=== PATIENT | female | born 1975 | race Caucasian/White ===

== ENCOUNTER 2020-12-22 22:08 | Emergency (ER) | payer SELFPAY ==
[2020-12-22 22:15] VITALS: BP 133/72; PULSE 80; RESP 16; TEMP 36.6; O2SAT 97; BMI 24.9
--- NOTE | 2020-12-22 22:42 | DI.CT.S_ITS ---
PROCEDURE: CT HEAD/BRAIN WO CON INDICATIONS: persistant headache TECHNIQUE: Noncontrast 4.5 mm thick angled axial sections acquired from the foramen magnum to the vertex, with coronal and sagittal reformats. For radiation dose reduction, the following was used: automated exposure control, adjustment of mA and/or kV according to patient size. COMPARISON: None. FINDINGS: Image quality: Excellent. CSF spaces: Basal cisterns are patent. No extra-axial fluid collections. Ventricles are normal in size and shape. Brain: No midline shift. No intracranial masses or hemorrhage. Melgar-white matter interface is normal. Skull and face: Calvarium and visualized facial bones are intact, without suspicious lesions. Sinuses: Visualized sinuses and mastoids are clear. IMPRESSION: 1. No acute intracranial abnormalities. No significant discrepancy with the shift supervisor melting radiology preliminary report. Dictated by: Ayden Brewster M.D. on 12/23/2020 at 7:26 Approved by: Ayden Brewster M.D. on 12/23/2020 at 7:26
--- NOTE | 2020-12-22 22:52 | ED.HA ---
HPI - Headache General Chief Complaint: Headache Stated Complaint: migraine Time Seen by Provider: 12/22/20 22:42 Source: patient Mode of arrival: Ambulatory Limitations: no limitations History of Present Illness HPI Narrative: Patient is a 45-year-old female history of migraines presenting with migraine is surge about 3 4 days ago. She says her migraines typically last about 5 days. She has taken sumatriptan without any relief. She is feels like her headache is getting worse it is now on the left side of her head. She has been vomiting she feels dehydrated. She denies any dizziness or lightheadedness. She denies any fever or neck pain. Is sensitive to light and noise typical to her previous headaches. She believes that she took sumatriptan today without any relief she has not taken any Tylenol or ibuprofen. She is traveling and she lives in [place] off a. She says that some migraine headaches for 17 years she has never had any imaging of her head. He is requesting CT. Complaint: migraine Onset (ago): day(s) Location: left Related Data Home Medications Medication Instructions Recorded Confirmed sumatriptan succinate 25 mg tablet 25 mg PO .prn tab 10/29/20 10/29/20 Allergies Allergy/AdvReac Type Severity Reaction Status Date / Time No Known Drug Allergies Allergy Verified 10/29/20 09:21 Review of Systems Review of Systems ROS Unobtainable: All systems reviewed & are unremarkable except as noted in HPI and below Constitutional Constitutional: Denies chills, Denies fever(s), Reports headache(s), Denies lethargy and Denies weakness Eyes Eyes: Reports photophobia ENT Ears, Nose, Mouth, and Throat: Denies vertigo, Denies dizziness and Reports headache(s) Cardiovascular Cardiovascular: Denies chest pain and Denies dyspnea on exertion Respiratory Respiratory: Denies cough and Denies dyspnea on exertion Gastrointestinal Gastrointestinal: Denies abdominal pain, Reports nausea and Reports vomiting Musculoskeletal Musculoskeletal: Denies back pain and Denies numbness Integumentary/Breasts Skin/Breast: Denies pruritus, Denies erythema, Denies rash and Denies wounds Neurologic Neurologic: Denies vertigo, Denies dizziness, Reports headache(s), Denies numbness and Denies weakness Exam Initial Vital Signs Initial Vital Signs: Vital Signs Temperature 97.8 F 06/16/21 22:15 Pulse Rate 80 12/22/20 22:15 Respiratory Rate 16 12/22/20 22:15 Blood Pressure 133/72 12/22/20 22:15 Pulse Oximetry 97 12/22/20 22:15 GENERAL: 45-year-old female in dark room with towel over her eyes appears in pain HEENT: Head atraumatic,EOMI, pupils reactive, face symmetric, moist] mucous membranes CARDIOVASCULAR: Regular rate and rhythm without murmurs, rubs or gallops. RESPIRATORY: Breath sounds equal bilaterally, no wheezes rales or rhonchi. ABDOMEN: Soft, nontender. Normoactive bowel sounds all 4 quadrants. No guarding or rebound. EXTREMITIES: Normal range of motion, no clubbing or edema. Neurovascularly intact NEUROLOGICAL: Alert and oriented x4.Normal gait and speech. Cranial nerves II through XII grossly intact. Senior Commissions Analyst strength equal bilaterally lower extremity strength equal as well sensation is to soft touch is intact bilaterally SKIN: Warm, dry, no laceration, no petechiae, no rashes or lesions. Scores NIH Stroke Scale Level of Conciousness: Alert, keenly responsive Ask month/age: Answers both questions correctly. Open/close eyes, close hand: Performs both tasks correctly Best gaze horizontal: Normal Visual meadows: No visual loss Facial palsy: Normal symetrical movement Left arm drift: No drift for full 10 sec Right arm drift: No drift for full 10 sec Left leg drift: No drift for full 5 sec Right leg drift: No drift for full 5 sec Limb ataxia: Absent Sensory on face/arms/legs: Normal, no sensory loss Best language: No aphasia, normal Dysarthria: Normal Extinction or inattention: No abnormality Total NIH Stroke scale score: 0 Course Orders Ordered: ED Orders 12/22/20 22:42 CT head/brain wo con Stat Discontinued Medications Diphenhydramine HCl (Diphenhydramine 50 Mg/Ml Vial) 25 mg IV NOW ONE Stop: 12/22/20 22:43 Last Admin: 12/22/20 22:57 Dose: 25 mg Documented by: ARRON Sodium Chloride (Normal Saline 0.9%) 1,000 mls @ 1,000 mls/hr IV BOLUS ONE Stop: 12/22/20 23:41 Last Infusion: 12/23/20 00:16 Dose: 0 mls/hr Documented by: Admin: 12/22/20 23:00 Dose: 1,000 mls/hr Documented by: ARRON Ketorolac Tromethamine (Ketorolac 30 Mg/Ml Vial) 15 mg IV NOW ONE Stop: 12/22/20 22:43 Last Admin: 12/22/20 22:54 Dose: 15 mg Documented by: ARRON Lorazepam (Lorazepam 2 Mg/Ml Inj) 0.5 mg IV NOW ONE Stop: 12/22/20 23:22 Last Admin: 12/22/20 23:24 Dose: 0.5 mg Documented by: ARRON Prochlorperazine (Prochlorperazine 10 Mg/2 Ml Vial) 10 mg IV NOW ONE Stop: 12/22/20 22:43 Last Admin: 12/22/20 22:55 Dose: 10 mg Documented by: ARRON Vital Signs Vital signs: Vital Signs - 8 hr 12/22/20 22:15 12/23/20 00:58 Temperature 97.8 F Pulse Rate 80 86 Respiratory Rate 16 20 Blood Pressure 133/72 99/68 Pulse Oximetry 97 96 MDM - Headache Imaging Data CT scan - head: Radiologist's Impression: Preliminary report negative head CT MDM Narrative Medical decision making narrative: Patient has history of migraines presents like his previous migraines. However [place] where [place] is no CT scanner and he has never had any imaging of her brain. Her headache is also uncontrolled with sumatriptan and she has been vomiting. He is feeling anxious after the migraine cocktail likely secondary to Compazine and is given 0.5 mg of Ativan and fell sleep. she is re-evaluated in headache has improved. She has no signs of meningitis, this is not the worse headache of her life and low suspicion for subarachnoid hemorrhage. At this time patient is feeling right and able to go home Discharge Plan Departure Patient Disposition: Home Clinical Impression: Migraine Qualifiers: Migraine type: unspecified Status migrainosus presence: without status migrainosus Intractability: not intractable Qualified Code(s): G43.909 - Migraine, unspecified, not intractable, without status migrainosus Instructions: DI for Migraine Activity Restrictions/Additional Instructions: *You have been diagnosed with migraine headache *What to do: At this time her CT scan of your head is negative. Help that you continue to go home and feel better and rest. *Continue to take medications as directed *Follow up with your primary care provider in 2-3 days *Return to ER if you should have worsening headache persistent vomiting weakness numbness or tingling or any new, worsening or concerning symptoms Prescriptions: No Action sumatriptan succinate 25 mg tablet 25 mg PO .prn RF: 0 Referrals: Delmis Daniel PA-C [Primary Care Provider] -
[2020-12-22] MEDS: KETOROLAC 30 MG/ML VIAL 15 MG IV (22:54)
[2020-12-22] MEDS: PROCHLORPERAZINE 10 MG/2 ML VIAL IV (22:55)
[2020-12-22] MEDS: diphenhydrAMINE 50 MG/ML VIAL 25 MG IV (22:57)
[2020-12-22] MEDS: SODIUM CHLORIDE 0.9% 1,000 ML 1000 ML IV (23:00)
[2020-12-22] MEDS: LORazepam 2 MG/ML INJ 0.5 MG IV (23:24)
[2020-12-23 00:58] VITALS: BP 99/68; PULSE 86; RESP 20; O2SAT 96
== END 2020-12-23 00:59 | disposition home or self-care (01) ==
PROVIDERS: Emergency Provider Emergency Medicine; PCP Physician Assistant Medical
DX: G43.909 Migraine, unspecified, not intractable, without status migrainosus (principal)
CPT/HCPCS: 70450; 96361; 96374; 96375; 99284; J0780; J1200; J1885; J2060

== ENCOUNTER 2022-06-28 11:07 | Emergency (ER) | payer OTHER, SELFPAY ==
[2022-06-28 11:20] VITALS: BP 120/88; PULSE 78; RESP 15; TEMP 36.7; O2SAT 99; BMI 27.3
[2022-06-28 12:56] LABS: Add Manual Diff / Slide Review NO; Basophils Absolute Auto 100 /uL (0-100); Eosinophils Absolute Auto 100 /uL (0-450); Eosinophils Percent Auto 0.8 % (2-4); Hematocrit 40.2 % (36-46); Hemoglobin 13.3 g/dL (12.0-16.0); Lymphocytes Absolute Auto 2100 /uL (1100-4500); Lymphocytes Percent Auto 27.5 % (25-40); Mean Corpuscular HGB Conc 33.1 % (30-36); Mean Corpuscular Hemoglobin 29.2 PG (26-34); Mean Corpuscular Volume 88.1 fL (80-100); Monocytes Absolute Auto 400 /uL (0-900); Monocytes Percent Auto 5.4 % (3-14); Neutrophils Absolute Auto 4900 /uL (1500-7000); Neutrophils Percent Auto 65.3 % (50-75); Platelet Count 283 X10^3/uL (150-400); Red Blood Cell Count 4.56 X10^6/uL (4.0-5.2); Red Cell Distribution Width 13.2 % (11.6-14.8); White Blood Cell Count 7.5 X10^3/uL (4.5-11.0)
[2022-06-28 13:10] LABS: INR 1.1 (0.9-1.3)
[2022-06-28 13:12] LABS: PTT Partial Thromboplastin Tim 36 SECONDS (26-36)
[2022-06-28 13:14] LABS: Alanine Aminotransferase 38 IU/L (<35); Albumin 4.8 g/dL (3.5-5.0); Albumin Globulin Ratio 1.3 (1.0-2.8); Alkaline Phosphatase 92 U/L (38-126); Aspartate Aminotransferase 36 IU/L (14-36); BUN Creatinine Ratio 19.5 (6-22); Bilirubin Total 0.6 mg/dL (0.2-1.3); Blood Urea Nitrogen 16 mg/dL (7-17); Calcium 9.5 mg/dL (8.4-10.2); Carbon Dioxide 26 mmol/L (22-32); Chloride 103 mmol/L (98-107); Estimated Glomerular Filt Rate > 60 mL/min (>60); Globulin 3.7 g/dL (1.7-4.1); Glucose 91 mg/dL (70-100); HEMOLYSIS 21 (0-50); Lipase 135 U/L (23-300); Potassium 4.1 mmol/L (3.4-5.1); Sodium 140 mmol/L (137-145); Total Protein 8.5 g/dL (6.3-8.2)
[2022-06-28 13:26] VITALS: BP 118/83; PULSE 76; O2SAT 97
[2022-06-28 13:30] VITALS: BP 128/80; PULSE 70; O2SAT 98
[2022-06-28 14:00] VITALS: PULSE 69; O2SAT 100
--- NOTE | 2022-06-28 14:10 | ED_ITS ---
HPI - Nausea/Vomiting/Diarrhea General Chief complaint: Nausea/Vomiting/Diarrhea Stated complaint: elevated liver level BUN/keratin level/diarrhea Time Seen by Provider: 06/28/22 12:13 Source: patient Mode of arrival: Ambulatory History of Present Illness HPI Narrative: Patient is a 46-year-old healthy female presenting with a variety of symptoms. She states she saw her convention services manager for routine visit on the . She had blood work drawn for routine. She said that her liver enzymes are mildly elevated. She feels like she is going through menopause she is been having night sweats sometimes days was but does not feel like she is had a fever. Last week she had some nausea vomiting and headache. She denied any chest pain cough or shortness breath. She is had some abdominal cramping and some weird diarrhea. She says her diarrhea is gelatinous like some times. She says she feels like she has to go regularly but she does not always go. It is nonbloody. Today she had a formed very loose fibrous bowel movement. She denies any real abdominal pain. She actually has an appointment with GI next month on the . She does not really have a PCP she only sees convention services manager Related Data Home Medications Medication Instructions Recorded Confirmed sumatriptan succinate 25 mg tablet 25 mg PO .prn 10/29/20 10/29/20 Allergies Allergy/AdvReac Type Severity Reaction Status Date / Time No Known Drug Allergies Allergy Verified 06/28/22 11:20 Review of Systems Review of Systems Narrative: GENERAL: See HPI HEENT: Denies sinus pain, ear pain, sore throat, difficulty swallowing, neck pain RESPIRATORY: Denies dyspnea, cough, wheezing, hemoptysis, sputum. CARDIOVASCULAR: Denies chest pain, palpitations, orthopnea, edema GASTROINTESTINAL: See HPI : Denies dysuria, frequency, incontinence, hematuria, urinary retention, flank pain. MUSCULOSKELETAL: Denies weakness, joint pain, or bony pain SKIN: No rash, no erythema, no pruritus NEUROLOGIC: Denies weakness, dizziness, headache, numbness, change in speech, confusion PSYCHIATRIC: No concerning psychosocial issues. 12 point review of systems is negative except for those stated above and HPI Patient History Social History Smoking Status: Unknown if ever smoked Smoking Status: Unknown if ever smoked alcohol intake frequency: holidays/special occasions only Substance Use Type: marijuana Exam Initial Vital Signs Initial Vital Signs: Vital Signs Temperature 98.0 F 06/28/22 11:20 Pulse Rate 78 06/28/22 11:20 Respiratory Rate 15 06/28/22 11:20 Blood Pressure 120/88 06/28/22 11:20 Pulse Oximetry 99 06/28/22 11:20 Oxygen Delivery Method 06/28/22 11:20 GENERAL: Alert pleasant 46-year-old female and in no acute distress. HEENT: Head atraumatic,EOMI, pupils reactive, face symmetric, moist mucous membranes CARDIOVASCULAR: Regular rate and rhythm without murmurs, rubs or gallops. RESPIRATORY: Breath sounds equal bilaterally, no wheezes rales or rhonchi. ABDOMEN: Soft, nontender. Normoactive bowel sounds all 4 quadrants. No guarding or rebound. EXTREMITIES: Normal range of motion, no clubbing or edema. Neurovascularly intact NEUROLOGICAL: Alert and oriented x4.Normal gait and speech. SKIN: Warm, dry, no laceration, no petechiae, no rashes or lesions. Course Orders Ordered: ED Orders 06/28/22 12:35 CBC Auto Diff [Complete Blood Count AUTO DIFF] Stat CMP [Comprehensive Metabolic Panel] Stat Lipase Stat PT [Prothrombin Time INR] Stat PTT [Partial Thromboplastin Time] Stat Vital Signs Vital signs: Vital Signs - 8 hr 06/28/22 11:20 06/28/22 13:26 06/28/22 13:26 Temperature 98.0 F Pulse Rate 78 76 Respiratory Rate 15 Blood Pressure 120/88 118/83 Pulse Oximetry 99 97 Oxygen Delivery Method Room Air 06/28/22 13:30 06/28/22 13:30 06/28/22 14:00 Temperature Pulse Rate 70 69 Respiratory Rate Blood Pressure 128/80 Pulse Oximetry 98 100 Oxygen Delivery Method 06/28/22 14:30 06/28/22 14:56 06/28/22 14:56 Temperature Pulse Rate 72 69 Respiratory Rate Blood Pressure 121/78 Pulse Oximetry 98 99 Oxygen Delivery Method MDM - Nausea/Vomiting/Diarrhea Lab Data Result diagrams: 06/28/22 12:35 06/28/22 12:35 Labs: Lab Results 06/28/22 06/28/22 06/28/22 Range/Units 12:35 12:35 12:35 WBC 7.5 (4.5-11.0) X10^3/uL RBC 4.56 (4.0-5.2) X10^6/uL Hgb 13.3 (12.0-16.0) g/dL Hct 40.2 (36-46) % MCV 88.1 (80-100) fL MCH 29.2 (26-34) PG MCHC 33.1 (30-36) % RDW 13.2 (11.6-14.8) % Plt Count 283 (150-400) X10^3/uL Neut % (Auto) 65.3 (50-75) % Lymph % (Auto) 27.5 (25-40) % [place] % (Auto) 5.4 (3-14) % Eos % (Auto) 0.8 L (2-4) % Baso % (Auto) 1.0 (0-2) % Neut # (Auto) 4900 (2612-2338) /uL Lymph # (Auto) 2100 (8958-8134) /uL Placer # (Auto) 400 (0-900) /uL Eos # (Auto) 100 (0-450) /uL Baso # (Auto) 100 (0-100) /uL PT 13.0 H (10.1-12.7) SECONDS INR 1.1 (0.9-1.3) APTT 36 (26-36) SECONDS Sodium 140 (137-145) mmol/L Potassium 4.1 (3.4-5.1) mmol/L Chloride 103 (98-107) mmol/L Carbon Dioxide 26 (22-32) mmol/L BUN 16 (7-17) mg/dL Creatinine 0.82 (0.52-1.04) mg/dL Estimated GFR > 60 (>60) mL/min BUN/Creatinine Ratio 19.5 (6-22) Glucose 91 (70-100) mg/dL Calcium 9.5 (8.4-10.2) mg/dL Total Bilirubin 0.6 (0.2-1.3) mg/dL AST 36 (14-36) IU/L ALT 38 H (<35) IU/L Alkaline Phosphatase 92 (38-126) U/L Total Protein 8.5 H (6.3-8.2) g/dL Albumin 4.8 (3.5-5.0) g/dL Globulin 3.7 (1.7-4.1) g/dL Albumin/Globulin Ratio 1.3 (1.0-2.8) Lipase 135 (23-300) U/L MDM Narrative Medical decision making narrative: Patient is a healthy 46-year-old female who presents with a variety of symptoms. She is had some ongoing abdominal issues with diarrhea and constipation like. She denies any well water no recent travel no one else has abdominal issues at home. She has no real pain at this time I see no need for imaging. He is unable to give a stool sample here in the ED for a GI panel. Her blood work today is very unimpressive. Her liver enzymes are within normal limits. She is absolutely no right upper quadrant pain. No lower abdominal pain. At this time I agree with outpatient workup. Differential diagnosis includes infectious diarrhea, Giardia, appendicitis, diverticulitis, irritable bowel syndrome, celiac disease, influenza Discharge Plan Departure Patient Disposition: Home Clinical Impression: Gastroenteritis Instructions: DI for Viral Gastroenteritis -- Adult Activity Restrictions/Additional Instructions: *You have been diagnosed with gastroenteritis *What to do: At this time please follow-up with GI. You still need a colonoscopy. You may also need an outpatient stool sample to rule out any kind of infection. Blood work today is overall reassuring. *Continue to take medications as directed *Follow up with your primary care provider in 2-3 days or call [phone] *Return to ER if you should have worsening diarrhea, increasing pain, not able to tolerate fluids or any new, worsening or concerning symptoms Prescriptions: No Action sumatriptan succinate 25 mg tablet 25 mg PO .prn Referrals: Delmis Daniel PA-C [Primary Care Provider] - Visit Report Forms: Patient Portal/API
[2022-06-28 14:30] VITALS: PULSE 72; O2SAT 98
[2022-06-28 14:56] VITALS: BP 121/78; PULSE 69; O2SAT 99
== END 2022-06-28 15:02 | disposition home or self-care (01) ==
PROVIDERS: Emergency Provider Emergency Medicine; PCP Physician Assistant Medical
DX: K52.9 Noninfective gastroenteritis and colitis, unspecified (principal)
CPT/HCPCS: 36415; 80053; 83690; 85025; 85610; 85730; 99283

== ENCOUNTER 2022-07-21 22:20 | Emergency (ER) | payer OTHER, SELFPAY ==
[2022-07-21 22:44] VITALS: BP 122/80; PULSE 71; RESP 18; TEMP 36.5; BMI 26.1
[2022-07-21 23:23] LABS: Prothrombin Time 11.8 SECONDS (10.1-12.7)
[2022-07-21 23:26] LABS: PTT Partial Thromboplastin Tim 35 SECONDS (26-36)
[2022-07-21 23:27] LABS: Add Manual Diff / Slide Review NO; Basophils Absolute Auto 100 /uL (0-100); Basophils Percent Auto 0.6 % (0-2); Eosinophils Absolute Auto 100 /uL (0-450); Eosinophils Percent Auto 1.5 % (2-4); Hematocrit 37.6 % (36-46); Hemoglobin 12.8 g/dL (12.0-16.0); Lymphocytes Absolute Auto 2700 /uL (1100-4500); Lymphocytes Percent Auto 30.2 % (25-40); Mean Corpuscular HGB Conc 34.1 % (30-36); Mean Corpuscular Hemoglobin 29.8 PG (26-34); Mean Corpuscular Volume 87.2 fL (80-100); Monocytes Absolute Auto 600 /uL (0-900); Monocytes Percent Auto 6.4 % (3-14); Neutrophils Absolute Auto 5400 /uL (1500-7000); Neutrophils Percent Auto 61.3 % (50-75); Platelet Count 271 X10^3/uL (150-400); Red Blood Cell Count 4.31 X10^6/uL (4.0-5.2); Red Cell Distribution Width 13.6 % (11.6-14.8); White Blood Cell Count 8.9 X10^3/uL (4.5-11.0)
[2022-07-21 23:30] LABS: Alanine Aminotransferase 32 IU/L (<35); Albumin 4.8 g/dL (3.5-5.0); Albumin Globulin Ratio 1.4 (1.0-2.8); Alkaline Phosphatase 84 U/L (38-126); Aspartate Aminotransferase 30 IU/L (14-36); BUN Creatinine Ratio 12.1 (6-22); Bilirubin Total 0.3 mg/dL (0.2-1.3); Blood Urea Nitrogen 15 mg/dL (7-17); Calcium 9.3 mg/dL (8.4-10.2); Carbon Dioxide 25 mmol/L (22-32); Chloride 103 mmol/L (98-107); Estimated Glomerular Filt Rate 54 mL/min (>60); Globulin 3.5 g/dL (1.7-4.1); Glucose 114 mg/dL (70-100); HEMOLYSIS < 15 (0-50); Potassium 3.5 mmol/L (3.4-5.1); Sodium 140 mmol/L (137-145); Total Protein 8.3 g/dL (6.3-8.2)
[2022-07-22] MEDS: PANTOPRAZOLE 40 MG VIAL 80 MG IV (01:57)
[2022-07-22] MEDS: SODIUM CHLORIDE 0.9% 1,000 ML 1000 ML IV (01:58)
--- NOTE | 2022-07-22 02:19 | ED.GIBLEED ---
HPI - GI Bleed General Chief complaint: GI Bleed Stated complaint: Thinks internal bleeding, GI bleeding Time Seen by Provider: 07/22/22 00:49 Source: patient Mode of arrival: Ambulatory Limitations: no limitations History of Present Illness HPI Narrative: This is a 46-year-old female who presents with history of pyloric stenosis, migraines for complaint of concern for bleeding. Patient states she was seen here on the 28 of June for nausea vomiting and diarrhea, she states she had a routine gynecologic visit on the was told that her enzymes were elevated. Patient states then then when she was seen in the ER she would 1 episode of vomiting she states it was sort of reddish in coloration. Patient states she has not had any additional since then but has had some persistent diarrhea sometimes pebbly stools but have been dark sometimes black. Patient states she is had some mild pain in her back and abdomen. She denies any chest pain or shortness of breath. She has been lightheaded. She denies any dysuria urgency or frequency. No current vaginal bleeding or discharge. Patient denies fevers but then states she was chilled a couple days ago and describes rigors like sensations here today. She denies any active headache currently she states she has taken quite a bit of NSAIDs in the past for headaches. She presents today with her daughter. She denies tobacco, no alcohol, she uses THC but no illicit. Related Data Home Medications Medication Instructions Recorded Confirmed sumatriptan succinate 25 mg tablet 25 mg PO .prn 10/29/20 10/29/20 Allergies Allergy/AdvReac Type Severity Reaction Status Date / Time No Known Drug Allergies Allergy Verified 06/28/22 11:20 Review of Systems Review of Systems ROS Unobtainable: All systems reviewed & are unremarkable except as noted in HPI and below Patient History Social History Smoking Status: Unknown if ever smoked Smoking Status: Unknown if ever smoked alcohol intake frequency: holidays/special occasions only Substance Use Type: marijuana Exam Narrative Exam Narrative: GENERAL: Alert and oriented x three, female in mild distress patient states she feels shaky. HEENT: Head normocephalic, atraumatic, EOMI, pupils reactive, face symmetric, moist mucous membranes NECK: Supple, full range of motion CARDIOVASCULAR: Regular rate and rhythm without murmurs, rubs or gallops. RESPIRATORY: Breath sounds equal bilaterally, no wheezes rales or rhonchi. ABDOMEN: Soft, nontender. Normoactive bowel sounds all 4 quadrants. No guarding or rebound, rigidity, no mass. Patient has healed incision over the abdomen. : No CVA tenderness EXTREMITIES: Normal range of motion, no clubbing or edema. Neurovascularly intact NEUROLOGICAL: Cranial nerves II through XII grossly intact. Moving all extremities SKIN: Warm, dry, no petechiae, no rashes or lesions. Initial Vital Signs Initial Vital Signs: Vital Signs Temperature 97.7 F 07/21/22 22:44 Pulse Rate 71 07/21/22 22:44 Respiratory Rate 18 07/21/22 22:44 Blood Pressure 122/80 07/21/22 22:44 Oxygen Delivery Method 07/21/22 22:44 Course Orders Ordered: Discontinued Medications Sodium Chloride (Normal Saline 0.9%) 1,000 mls @ 1,000 mls/hr IV BOLUS ONE Stop: 07/22/22 01:48 Last Infusion: 07/22/22 03:32 Dose: 0 mls/hr Documented By: Admin: 07/22/22 01:58 Dose: 1,000 mls/hr Documented By: MAXIMUS Ondansetron HCl (Ondansetron 4 Mg/2 Ml Inj) 4 mg IV NOW PRN PRN Reason: Nausea And Vomiting Ondansetron HCl (Ondansetron 4 Mg Odt) 4 mg SL NOW PRN PRN Reason: Nausea And Vomiting Pantoprazole Sodium (Pantoprazole 40 Mg Vial) 80 mg IV NOW ONE Stop: 07/21/22 23:11 Last Admin: 07/22/22 01:57 Dose: 80 mg Documented By: MAXIMUS Vital Signs Vital signs: Vital Signs - 8 hr 07/21/22 22:44 Temperature 97.7 F Pulse Rate 71 Respiratory Rate 18 Blood Pressure 122/80 Oxygen Delivery Method Room Air MDM - GI Bleed Lab Data Result diagrams: 07/21/22 23:04 07/21/22 23:04 Labs: Lab Results 07/21/22 07/21/22 07/21/22 Range/Units 23:04 23:04 23:04 WBC 8.9 (4.5-11.0) X10^3/uL RBC 4.31 (4.0-5.2) X10^6/uL Hgb 12.8 (12.0-16.0) g/dL Hct 37.6 (36-46) % MCV 87.2 (80-100) fL MCH 29.8 (26-34) PG MCHC 34.1 (30-36) % RDW 13.6 (11.6-14.8) % Plt Count 271 (150-400) X10^3/uL Neut % (Auto) 61.3 (50-75) % Lymph % (Auto) 30.2 (25-40) % [place] % (Auto) 6.4 (3-14) % Eos % (Auto) 1.5 L (2-4) % Baso % (Auto) 0.6 (0-2) % Neut # (Auto) 5400 (1723-8675) /uL Lymph # (Auto) 2700 (7136-3601) /uL [place] # (Auto) 600 (0-900) /uL Eos # (Auto) 100 (0-450) /uL Baso # (Auto) 100 (0-100) /uL PT 11.8 (10.1-12.7) SECONDS INR 1.0 (0.9-1.3) APTT 35 (26-36) SECONDS Sodium 140 (137-145) mmol/L Potassium 3.5 (3.4-5.1) mmol/L Chloride 103 (98-107) mmol/L Carbon Dioxide 25 (22-32) mmol/L BUN 15 (7-17) mg/dL Creatinine 1.24 H (0.52-1.04) mg/dL Estimated GFR 54 L (>60) mL/min BUN/Creatinine Ratio 12.1 (6-22) Glucose 114 H (70-100) mg/dL Lactate (0.7-2.1) mmol/L Calcium 9.3 (8.4-10.2) mg/dL Total Bilirubin 0.3 (0.2-1.3) mg/dL AST 30 (14-36) IU/L ALT 32 (<35) IU/L Alkaline Phosphatase 84 (38-126) U/L Total Protein 8.3 H (6.3-8.2) g/dL Albumin 4.8 (3.5-5.0) g/dL Globulin 3.5 (1.7-4.1) g/dL Albumin/Globulin Ratio 1.4 (1.0-2.8) Blood Type Antibody Screen 07/21/22 07/22/22 Range/Units 23:04 02:58 WBC (4.5-11.0) X10^3/uL RBC (4.0-5.2) X10^6/uL Hgb (12.0-16.0) g/dL Hct (36-46) % MCV (80-100) fL MCH (26-34) PG MCHC (30-36) % RDW (11.6-14.8) % Plt Count (150-400) X10^3/uL Neut % (Auto) (50-75) % Lymph % (Auto) (25-40) % [place] % (Auto) (3-14) % Eos % (Auto) (2-4) % Baso % (Auto) (0-2) % Neut # (Auto) (8213-9586) /uL Lymph # (Auto) (5256-9269) /uL [place] # (Auto) (0-900) /uL Eos # (Auto) (0-450) /uL Baso # (Auto) (0-100) /uL PT (10.1-12.7) SECONDS INR (0.9-1.3) APTT (26-36) SECONDS Sodium (137-145) mmol/L Potassium (3.4-5.1) mmol/L Chloride (98-107) mmol/L Carbon Dioxide (22-32) mmol/L BUN (7-17) mg/dL Creatinine (0.52-1.04) mg/dL Estimated GFR (>60) mL/min BUN/Creatinine Ratio (6-22) Glucose (70-100) mg/dL Lactate 0.8 (0.7-2.1) mmol/L Calcium (8.4-10.2) mg/dL Total Bilirubin (0.2-1.3) mg/dL AST (14-36) IU/L ALT (<35) IU/L Alkaline Phosphatase (38-126) U/L Total Protein (6.3-8.2) g/dL Albumin (3.5-5.0) g/dL Globulin (1.7-4.1) g/dL Albumin/Globulin Ratio (1.0-2.8) Blood Type O Positive Antibody Screen Negative Point of Care Testing Test Results Negative Urine Dip Bedside Urine Glucose Negative Bedside Urine Bilirubin - Negative Bedside Urine Ketone - Negative Urine Specific [place] 1.030 Bedside Urine Occult Blood - Negative Bedside Urine pH 6.0 Bedside Urine Protein - Negative Bedside Urine Urobilinogen - Negative Bedside Urine Nitrite - Negative Bedside Urine Leukocytes - Negative Esterase Imaging Data CT scan - abdomen/pelvis: Radiologist's Impression: Diverticulosis coli without CT evidence of acute diverticulitis, normal terminal ileum and appendix. Physiologic distention gallbladder with no radiopaque gallstones. No renal parenchymal disease or evidence of obstructive uropathy. MDM Narrative Medical decision making narrative: This is a 46-year-old female comes emergency department with multiple concerns but mainly that she might be have internal bleeding. She states she is noticed blackish discoloration stools intermittently sometimes reddish. Patient is noted have a bump in her creatinine from her last visit. CBC is normal, coags are negative, patient's BUN is not elevated today, glucose is 114 patient's urine is negative, point of care urine is negative as well. Plan for CT abdomen pelvis for further evaluation. Blood cultures and lactate obtained. Patient's lactate appropriate. Patient's CT does not show acute change. No obstructive disease. Suspect that chronic NSAID use may be a combination with her recent GI illness she does not appear dehydrated by her BUN or urine sample. Discharge Plan Departure Patient Disposition: Home Clinical Impression: Elevated serum creatinine Instructions: Gastrointestinal Bleeding Activity Restrictions/Additional Instructions: Follow-up with your physician for recheck. Sounds very appropriate that you have been scheduled for colonoscopy. Your workup today overall is reassuring, although your creatinine is elevated I would have this rechecked by your physician in the next week. Please avoid NSAIDs such as ibuprofen, Aleve and naproxen. Please return for fevers, worsening abdominal back or flank pain, persistent vomiting, increasing bloody stools, lightheadedness or passing out, new chest pain or shortness of breath or other new or concerning changes. Prescriptions: No Action sumatriptan succinate 25 mg tablet 25 mg PO .prn Referrals: Clarisa Martinez MD [Physician] - Delmis Daniel PA-C [Primary Care Provider] - Stand Alone Forms: Patient Portal/API
--- NOTE | 2022-07-22 02:32 | DI.CT.S_ITS ---
PROCEDURE: CT ABDOMEN PELVIS W CON INDICATIONS: n/v/d TECHNIQUE: After the administration of IV contrast, axial sections were acquired from the lung bases to the pubic symphysis. Coronal and sagittal reformats were performed. For radiation dose reduction, the following was used: automated exposure control, adjustment of mA and/or kV according to patient size. COMPARISON: None. FINDINGS: Image quality: Excellent. Lung bases: Unremarkable. Heart: No significant findings. ABDOMEN: Liver: Unremarkable. Gallbladder: Unremarkable. Biliary ducts: Unremarkable. Pancreas: Unremarkable. Spleen: Unremarkable. Adrenal Glands: Unremarkable. Kidneys and Ureters: Unremarkable. Stomach and Bowel: Stomach, small bowel loops, and colon are unremarkable. Colonic diverticulosis is seen, without findings of active diverticulitis. A normal appendix is seen. Peritoneum: No abnormal intraperitoneal fluid. No free air. Ventral Wall: No hernia. Abdominal Nodes: No retroperitoneal or mesenteric adenopathy by size criteria. Vessels: Aorta and inferior vena cava are normal in size. PELVIS: Pelvic Organs: The uterus appears normal for age. No adnexal masses are seen. Bladder: Unremarkable. Pelvic Nodes: No enlarged lymph nodes. Miscellaneous: No inguinal hernias are seen. Bones: Mild dextroconvex scoliotic curvature is seen. IMPRESSION: No significant abnormality is seen. No dilated loops of small bowel are seen. Normal appendix. Colonic diverticulosis is seen, without findings of active diverticulitis. Note: No significant discrepancy from the preliminary report. Dictated by: Rashaun Rosales M.D. on 07/22/2022 at 7:46 Approved by: Rashaun Rosales M.D. on 07/22/2022 at 7:48
[2022-07-22 02:50] VITALS: PULSE 74; O2SAT 98
[2022-07-22 03:00] VITALS: PULSE 73; O2SAT 97
[2022-07-22 03:29] LABS: Lactate (Lactic Acid) 0.8 mmol/L (0.7-2.1)
[2022-07-22 03:30] VITALS: PULSE 67; O2SAT 96
[2022-07-22 04:00] VITALS: PULSE 70; O2SAT 95
[2022-07-22 04:30] VITALS: PULSE 65; O2SAT 97
== END 2022-07-22 05:10 | disposition home or self-care (01) ==
PROVIDERS: Emergency Provider Emergency Medicine; PCP Physician Assistant Medical
DX: R79.89 Other specified abnormal findings of blood chemistry (principal); K92.2 Gastrointestinal hemorrhage, unspecified
CPT/HCPCS: 36415; 74177; 80053; 81003; 81025; 83605; 85025; 85610; 85730; 86850; 86900; 86901; 87040; 96361; 96374; 99284; C9113

== ENCOUNTER 2022-07-25 18:27 | Emergency (ER) | payer OTHER, SELFPAY ==
[2022-07-25 19:10] VITALS: BP 115/77; PULSE 78; RESP 17; TEMP 36.6; O2SAT 98; BMI 25.7
== END 2022-07-25 19:50 | disposition left against medical advice (07) ==
PROVIDERS: Emergency Provider Emergency Medicine; PCP Physician Assistant Medical
CPT/HCPCS: 99281

== ENCOUNTER → 2022-08-01 15:01 | Outpatient (CLI) | payer OTHER, SELFPAY ==
[2022-08-01 15:53] LABS: BUN Creatinine Ratio 19.7 (6-22); Blood Urea Nitrogen 14 mg/dL (7-17); Calcium 9.2 mg/dL (8.4-10.2); Carbon Dioxide 28 mmol/L (22-32); Chloride 104 mmol/L (98-107); Estimated Glomerular Filt Rate > 60 mL/min (>60); Glucose 99 mg/dL (70-100); HEMOLYSIS < 15 (0-50); Potassium 3.7 mmol/L (3.4-5.1); Sodium 142 mmol/L (137-145)
== END ==
PROVIDERS: PCP Family Medicine; Referring Provider Nurse Practitioner Family; Visit Provider Nurse Practitioner Family
DX: R79.89 Other specified abnormal findings of blood chemistry (principal)
CPT/HCPCS: 36415; 80048

== ENCOUNTER → 2023-08-30 14:03 | Outpatient (CLI) | payer OTHER, SELFPAY ==
[2023-08-30 14:45] LABS: Add Manual Diff / Slide Review NO; Basophils Absolute Auto 100 /uL (0-100); Basophils Percent Auto 0.8 % (0-2); Eosinophils Absolute Auto 100 /uL (0-450); Eosinophils Percent Auto 1.6 % (2-4); Hematocrit 37.9 % (36-46); Hemoglobin 12.7 g/dL (12.0-16.0); Lymphocytes Absolute Auto 2800 /uL (1100-4500); Lymphocytes Percent Auto 40.7 % (25-40); Mean Corpuscular HGB Conc 33.4 % (30-36); Mean Corpuscular Hemoglobin 29.6 PG (26-34); Mean Corpuscular Volume 88.7 fL (80-100); Monocytes Absolute Auto 300 /uL (0-900); Monocytes Percent Auto 5.1 % (3-14); Neutrophils Absolute Auto 3500 /uL (1500-7000); Neutrophils Percent Auto 51.8 % (50-75); Platelet Count 270 X10^3/uL (150-400); Red Blood Cell Count 4.28 X10^6/uL (4.0-5.2); Red Cell Distribution Width 13.9 % (11.6-14.8); White Blood Cell Count 6.8 X10^3/uL (4.5-11.0)
[2023-08-30 15:05] LABS: Erythrocyte Sedimentation Rate 20 MM/HR (0-20)
[2023-09-05 21:51] LABS: 18 kD IgG Band Absent (.); 23 kD IgG Band Absent (.); 28 kD IgG Band Absent (.); 30 kD IgG Band Absent (.); 39 kD IgG Band Absent (.); 41 kD IgG Bands Absent (.); 45 kD IgG Band Absent (.); 58 kD IgG Band Absent (.); 66 kD IgG Band Absent (.); IgG P93 AB Absent (.); IgM P23 AB Absent (.); IgM P39 AB Absent (.); IgM P41 AB Absent (.); Lyme IgG Line Blot Interpretat Negative (.); Lyme IgM Line Blot Interpretat Negative (.)
== END ==
PROVIDERS: PCP Family Medicine; Referring Provider Family Medicine; Visit Provider Family Medicine
DX: T14.8XXA Other injury of unspecified body region, initial encounter (principal); W57.XXXA Bitten or stung by nonvenomous insect and other nonvenomous arthropods, initial encounter
CPT/HCPCS: 36415; 85025; 85651; 86617

== ENCOUNTER 2023-09-06 17:51 | Emergency (ER) | payer OTHER, SELFPAY ==
[2023-09-06 17:53] VITALS: BP 107/72; PULSE 67; RESP 16; TEMP 36.5; O2SAT 98; BMI 25.7
--- NOTE | 2023-09-06 18:57 | ED_ITS ---
HPI - Back Pain/Injury General Chief Complaint: Back Pain/Injury Stated Complaint: worsening back pain Time Seen by Provider: 09/06/23 18:49 Source: patient Mode of arrival: Ambulatory History of Present Illness HPI Narrative: Patient is a 47-year-old female who is here for evaluation of left-sided chest and back discomfort. Has been going on for the past 10 hours. She has not tried anything for the symptoms. No urinary symptoms. No fevers. No shortness of breath. Has had some palpitations but this is not new in his have been going on for years. No abdominal pain. No skin rashes. Related Data Home Medications Medication Instructions Recorded Confirmed multivitamin 1 tab PO DAILY 08/01/22 08/28/23 sumatriptan succinate 100 mg tablet 100 mg PO Migraine 08/28/23 08/28/23 Previous Rx's Medication Instructions Recorded [id number] See Rx Instructions PO Q6H PRN 12/16/22 50 mg-325 mg-40 mg tablet pain #60 tabs Allergies Allergy/AdvReac Type Severity Reaction Status Date / Time No Known Drug Allergies Allergy Verified 08/28/23 16:38 Review of Systems Constitutional Constitutional: Reports system reviewed and no additional complaints, except as documented ENT Ears, Nose, Mouth, and Throat: Reports system reviewed and no additional complaints, except as documented Cardiovascular Cardiovascular: Reports system reviewed and no additional complaints, except as documented Respiratory Respiratory: Reports system reviewed and no additional complaints, except as documented Integumentary/Breasts Skin/Breast: Reports system reviewed and no additional complaints, except as documented Neurologic Neurologic: Reports system reviewed and no additional complaints, except as documented Patient History Medical History Tick bite of abdomen Tick bite Wears glasses Headache Foot pain (~2019) Heavy menstrual period Hemorrhoid (~2020) GI bleeding (~2021) Migraine (~2002) Surgical History Anesthesia History of pyloric stenosis (~1975) History of section (~2003) History of cervical polypectomy (~2017) Family History Grandfather History of heart disease Grandmother Mental health problem Social History Smoking Status: Never smoker Smoking Status: Never smoker alcohol intake frequency: holidays/special occasions only Substance Use Type: does not use Exam Initial Vital Signs Initial Vital Signs: Vital Signs Temperature 97.7 F 09/06/23 17:53 Pulse Rate 67 09/06/23 17:53 Respiratory Rate 16 09/06/23 17:53 Blood Pressure 107/72 09/06/23 17:53 Pulse Oximetry 98 09/06/23 17:53 Oxygen Delivery Method Room Air 09/06/23 17:53 Const General: cooperative, comfortable and No ill appearing HENMT Head: normal to inspection Resp Effort & Inspection: normal respiratory effort Auscultation: clear to auscultation bilaterally Cardio Rate: regular rate Rhythm: regular rhythm GI Inspection: normal to inspection and non-distended Palpation: soft and No tender Back/Spine/Pelvis Other: Left sided paraspinal thoracic discomfort. Skin General: no rashes or lesions noted Neuro General: patient alert, patient awake and moves all extremities Extrem General: normal to inspection and capillary refill normal Course Orders Ordered: ED Orders 09/06/23 18:58 XR chest 1V Stat EKG-12 Lead Stat 09/06/23 19:37 Complete Blood Count AUTO DIFF Stat Comprehensive Metabolic Panel Stat Lipase Stat Troponin & CK Cardiac Panel Stat 09/06/23 20:25 Urine Culture Stat Urine Microscopic Stat Vital Signs Vital signs: Vital Signs - 8 hr 09/06/23 19:39 09/06/23 19:39 09/06/23 20:00 Pulse Rate 65 62 Respiratory Rate 16 Blood Pressure 111/67 Pulse Oximetry 97 100 Oxygen Delivery Method Room Air 09/06/23 20:00 09/06/23 20:30 09/06/23 20:30 Pulse Rate 66 Respiratory Rate 22 Blood Pressure 92/64 106/79 Pulse Oximetry 99 Oxygen Delivery Method Room Air 09/06/23 21:24 Pulse Rate 68 Respiratory Rate 12 Blood Pressure 106/71 Pulse Oximetry 97 Oxygen Delivery Method Room Air MDM - Back Pain/Injury Lab Data Attestation: I reviewed the patient's lab results. 09/06/23 19:37 09/06/23 19:37 Labs: Lab Results 09/06/23 09/06/23 Range/Units 19:37 20:25 WBC 8.3 (4.5-11.0) X10^3/uL RBC 4.31 (4.0-5.2) X10^6/uL Hgb 12.5 (12.0-16.0) g/dL Hct 37.7 (36-46) % MCV 87.6 (80-100) fL MCH 29.0 (26-34) PG MCHC 33.1 (30-36) % RDW 13.9 (11.6-14.8) % Plt Count 289 (150-400) X10^3/uL Neut % (Auto) 54.5 (50-75) % Lymph % (Auto) 36.7 (25-40) % Banks % (Auto) 5.7 (3-14) % Eos % (Auto) 2.1 (2-4) % Baso % (Auto) 1.0 (0-2) % Neut # (Auto) 4500 (7749-5854) /uL Lymph # (Auto) 3100 (5983-2790) /uL Banks # (Auto) 500 (0-900) /uL Eos # (Auto) 200 (0-450) /uL Baso # (Auto) 100 (0-100) /uL Sodium 138 (137-145) mmol/L Potassium 3.8 (3.4-5.1) mmol/L Chloride 108 H (98-107) mmol/L Carbon Dioxide 24 (22-32) mmol/L BUN 15 (7-17) mg/dL Creatinine 0.63 (0.52-1.04) mg/dL Estimated GFR > 60 (>60) mL/min BUN/Creatinine Ratio 23.8 H (6-22) Glucose 85 (70-100) mg/dL Calcium 9.4 (8.4-10.2) mg/dL Total Bilirubin 0.5 (0.2-1.3) mg/dL AST 43 H (14-36) IU/L ALT 62 H (<35) IU/L Alkaline Phosphatase 97 (38-126) U/L Total Creatine Kinase 119 (30-135) U/L Troponin I < 0.012 (0.01-0.034) ng/mL Total Protein 8.2 (6.3-8.2) g/dL Albumin 4.7 (3.5-5.0) g/dL Globulin 3.5 (1.7-4.1) g/dL Albumin/Globulin Ratio 1.3 (1.0-2.8) Lipase 181 (23-300) U/L Urine RBC 0-1/hpf (0-5/HPF) Urine WBC 5-10/hpf H (0-5/HPF) Ur Squamous Epith Cells 5-10 /hpf H (0-5/HPF) Urine Bacteria Moderate (10-30) H (None) Urine Mucus 2+ H (Negative) Ur Culture Indicated? Cult not indicated Vol Urine Centrifuged 10ml (spun) Urine Dip Bedside Urine Glucose Negative Bedside Urine Bilirubin - Negative Bedside Urine Ketone ++ 40 Urine Specific [place] 1.020 Bedside Urine Occult Blood - Negative Bedside Urine pH 6.0 Bedside Urine Protein - Negative Bedside Urine Urobilinogen - Negative Bedside Urine Nitrite - Negative Bedside Urine Leukocytes +++ 500 Esterase Imaging Data Chest x-ray: Radiologist's Impression: PROCEDURE: XR CHEST 1V INDICATIONS: L sided chest pain TECHNIQUE: One view of the chest was acquired. COMPARISON: None. FINDINGS: Surgical changes and devices: None. Lungs and pleura: Lungs are clear. No pleural effusions or pneumothorax. Mediastinum: Mediastinal contours appear normal. Heart size is normal. Bones and chest wall: No suspicious bony lesions. Overlying soft tissues appear unremarkable. IMPRESSION: No acute cardiopulmonary abnormality is seen. ECG Data Interpretation: Sinus rhythm Ventricular rate is 66 Normal axis Normal QRS Normal QTC No ST T wave changes MDM Narrative Medical decision making narrative: Workup here in the emergency department is very reassuring. She does not have any UTI like symptoms so we will wait for the urine culture to resolve before starting on any antibiotics. No fevers. Chest x-ray is unremarkable. Low suspicion for ACS based on her presentation. LFTs, lipase unremarkable. Low suspicion that her symptoms is actually Kehr's sign which would be indicative of an intra-abdominal issue. I do suspect musculoskeletal. Symptomatic treatment for now. We will contact her if we need to start antibiotics based on the culture result. She was given return precautions. She expressed understanding and agreement. Discharge Plan Departure Patient Disposition: Home Clinical Impression: Flank pain Instructions: DI for Flank Pain Activity Restrictions/Additional Instructions: Recommend that you continue with the Tylenol and ibuprofen for discomfort. Contact your primary care doctor for follow-up. There is a urine culture pending at the time of your discharge him we will contact you if we need to start any antibiotics based on this. Return to the emergency department for new symptoms. Prescriptions: No Action pevpiopiwf-vfyxqffyouqjz-donv 50-325-40 mg tablet See Rx Instructions PO Q6H PRN (Reason: pain) Qty: 60 0RF Rx Instructions: 1 to 2 tablets orally every 6 hours as needed; not to exceed 6 tablets.do not exceed 6 tabs per 24 hrs multivitamin Tablet 1 tab PO DAILY sumatriptan succinate 100 mg tablet 100 mg PO Patient Comments: Have suffered occasional debilitating migraines for 20 years; frequency has decreased over past 2 years. Referrals: Madi Zapata DO [Primary Care Provider] - Stand Alone Forms: Patient Portal/API
--- NOTE | 2023-09-06 18:58 | DI.RAD.S_ITS ---
PROCEDURE: XR CHEST 1V INDICATIONS: L sided chest pain TECHNIQUE: One view of the chest was acquired. COMPARISON: None. FINDINGS: Surgical changes and devices: None. Lungs and pleura: Lungs are clear. No pleural effusions or pneumothorax. Mediastinum: Mediastinal contours appear normal. Heart size is normal. Bones and chest wall: No suspicious bony lesions. Overlying soft tissues appear unremarkable. IMPRESSION: No acute cardiopulmonary abnormality is seen. Dictated by: Juan Francisco Davis M.D. on 09/06/2023 at 20:02 Approved by: Juan Francisco Davis M.D. on 09/06/2023 at 20:02
[2023-09-06 19:39] VITALS: BP 111/67; PULSE 65; O2SAT 97
[2023-09-06 19:48] LABS: Add Manual Diff / Slide Review NO; Basophils Absolute Auto 100 /uL (0-100); Eosinophils Absolute Auto 200 /uL (0-450); Eosinophils Percent Auto 2.1 % (2-4); Hematocrit 37.7 % (36-46); Hemoglobin 12.5 g/dL (12.0-16.0); Lymphocytes Absolute Auto 3100 /uL (1100-4500); Lymphocytes Percent Auto 36.7 % (25-40); Mean Corpuscular HGB Conc 33.1 % (30-36); Mean Corpuscular Volume 87.6 fL (80-100); Monocytes Absolute Auto 500 /uL (0-900); Monocytes Percent Auto 5.7 % (3-14); Neutrophils Absolute Auto 4500 /uL (1500-7000); Neutrophils Percent Auto 54.5 % (50-75); Platelet Count 289 X10^3/uL (150-400); Red Blood Cell Count 4.31 X10^6/uL (4.0-5.2); Red Cell Distribution Width 13.9 % (11.6-14.8); White Blood Cell Count 8.3 X10^3/uL (4.5-11.0)
[2023-09-06 19:59] LABS: Alanine Aminotransferase 62 IU/L (<35); Albumin 4.7 g/dL (3.5-5.0); Albumin Globulin Ratio 1.3 (1.0-2.8); Alkaline Phosphatase 97 U/L (38-126); Aspartate Aminotransferase 43 IU/L (14-36); BUN Creatinine Ratio 23.8 (6-22); Bilirubin Total 0.5 mg/dL (0.2-1.3); Blood Urea Nitrogen 15 mg/dL (7-17); Calcium 9.4 mg/dL (8.4-10.2); Carbon Dioxide 24 mmol/L (22-32); Chloride 108 mmol/L (98-107); Creatine Kinase 119 U/L (30-135); Estimated Glomerular Filt Rate > 60 mL/min (>60); Globulin 3.5 g/dL (1.7-4.1); Glucose 85 mg/dL (70-100); HEMOLYSIS 15 (0-50); Lipase 181 U/L (23-300); Potassium 3.8 mmol/L (3.4-5.1); Sodium 138 mmol/L (137-145); Total Protein 8.2 g/dL (6.3-8.2)
[2023-09-06 20:00] VITALS: BP 92/64; PULSE 62; RESP 16; O2SAT 100
[2023-09-06 20:10] LABS: Troponin I < 0.012 ng/mL (0.01-0.034)
[2023-09-06 20:30] VITALS: BP 106/79; PULSE 66; RESP 22; O2SAT 99
[2023-09-06 20:55] LABS: Bacteria Urine Moderate (10-30); Culture Indicated Urine Cult Not Indicated; Mucus Urine 2+ (Negative); RBC Urine 0-1/HPF (0-5/HPF); Squamous Epithelial Cell Urine 5-10 /HPF (0-5/HPF); Urine Volume 10mL (spun); WBC Urine 5-10/HPF (0-5/HPF)
[2023-09-06 21:24] VITALS: BP 106/71; PULSE 68; RESP 12; O2SAT 97
== END 2023-09-06 21:25 | disposition home or self-care (01) ==
PROVIDERS: Emergency Provider Emergency Medicine; PCP Family Medicine
DX: R10.9 Unspecified abdominal pain (principal); R07.9 Chest pain, unspecified
CPT/HCPCS: 36415; 71045; 80053; 81003; 81015; 82550; 83690; 84484; 85025; 87086; 93005; 99283; 99284

== ENCOUNTER → 2024-08-28 08:27 | Outpatient (CLI) | payer BC, SELFPAY ==
--- NOTE | 2024-08-28 08:28 | DI.US.S_ITS ---
PROCEDURE: US PELVIC COMPLETE INDICATIONS: postmenopausal bleeding TECHNIQUE: Real-time scanning was performed of the pelvic organs, with image documentation. Additional endovaginal scanning was necessary due to incomplete visualization of the adnexal and endometrial structures by transabdominal scanning. COMPARISON: None. FINDINGS: Uterus: Uterus is retroverted and normal in size at 6.0 x 4.9 x 3.8 cm. The myometrium is heterogeneous. The endometrium measures 6.2 mm combined thickness. Increased vascularity to the uterine myometrium. Trace cervical fluid is noted. Ovaries: The right ovary measures 2.2 x 1.0 x 1.2 cm, with a calculated ovarian volume of 1.4 cc. The left ovary measures 1.9 x 1.3 x 0.7 cm, with a calculated ovarian volume of 0.9 cc. The ovaries have a normal sonographic appearance. Less than 12 follicles can be seen in each ovary. No adnexal masses are seen. Other: No pathologic free abdominal or pelvic fluid. IMPRESSION: Endometrium is increased in thickness measuring 6 mm. Recommend endometrial sampling for further evaluation or short-term follow-up ultrasound. Trace anechoic fluid within the cervix. Increased vascularity to the uterine myometrium is nonspecific. We strive to produce accurate, complete, and clear reports of imaging services. To assist us in improving patient care, this report was composed using standard report templates and voice recognition software. Therefore, it may contain abnormal punctuation, insertions and/or omissions. Occasional wrong-word or sound-alike substitutions may occur. Though we review the report and make efforts to correct it, we do recommend that the report be read carefully in proper context to recognize any text inaccuracies. Dictated by: Juan Francisco Davis M.D. on 08/28/2024 at 14:08 Approved by: Juan Francisco Davis M.D. on 08/28/2024 at 14:10
== END ==
PROVIDERS: PCP Family Medicine; Referring Provider Obstetrics & Gynecology; Visit Provider Obstetrics & Gynecology
DX: N95.0 Postmenopausal bleeding (principal); N95.1 Menopausal and female climacteric states
CPT/HCPCS: 76830; 76856